=== PATIENT | female | born 1995 | race Caucasian/White ===

== ENCOUNTER 2022-05-17 14:41 | Emergency (ER) | payer OTHER ==
[~2022-05-17] VITALS: Ht 152.4 cm; Wt 56.8 kg
[~2022-05-17 14:41] MED LIST: NOCURR
[2022-05-17] MEDS ORDERED: KETOROLAC TROMETHAMINE 30 MG/ML VIAL IM ONE (16:00)
[2022-05-17] MEDS ORDERED: IBUP-1492 PO (16:23)
[2022-05-17 17:06] VITALS: BP 104/65
== END 2022-05-17 16:59 | disposition home or self-care (01) ==
LOC: EMS 14:47
DX: H72.91 Unspecified perforation of tympanic membrane, right ear (principal); F15.90 Other stimulant use, unspecified, uncomplicated
CPT/HCPCS: 99283; 96372; J1885

== ENCOUNTER 2022-07-15 11:52 | Emergency (ER) | payer OTHER ==
[~2022-07-15] VITALS: Ht 149.9 cm; Wt 54.5 kg
[~2022-07-15 11:52] MED LIST changes: +IBUP-1492 PO
[2022-07-15] MEDS ORDERED: MethylPREDNISolone SOD SUCC 125 MG/2 ML VIAL IVP ONE (12:15)
[2022-07-15 12:25] LABS: BASOPHILS % (AUTO) 0.8 % (0.0-2.0); EOSINOPHILS % (AUTO) 0.9 % (1.0-6.0); HEMATOCRIT 41.3 % (36-46); HEMOGLOBIN 13.4 g/dL (12.0-16.0); LYMPHOCYTES # (AUTO) 2.6 K/uL (1.0-4.8); LYMPHOCYTES % (AUTO) 53.4 % (22.0-44.0); MEAN CORPUSCULAR HEMOGLOBIN 30.3 pg (26.0-34.0); MEAN CORPUSCULAR HGB CONC 32.5 G/dL (31.0-37.0); MEAN CORPUSCULAR VOLUME 93 fL (80-100); MONOCYTES # (AUTO) 0.4 K/uL (0.1-1.0); NEUTROPHILS # (AUTO) 1.8 K/uL (1.8-7.7); NEUTROPHILS % (AUTO) 35.9 % (40.0-70.0); PLATELET COUNT (AUTO) 271 K/uL (150-450); RED BLOOD CELL COUNT(AUTO) 4.43 MIL/uL (4.00-5.20)
[2022-07-15 12:38] LABS: ANION GAP 7 mmol/L (8-16); CALCIUM, TOTAL 8.5 mg/dL (8.8-10.5); CARBON DIOXIDE 28 mmol/L (22-29); CHLORIDE 105 mmol/L (98-107); CREATININE 0.55 mg/dL (0.60-1.30); GLOMERULAR FILTR. RATE CALC > 60 mL/min (>60); GLUCOSE,RANDOM 90 mg/dL (70-110); POTASSIUM 4.1 mmol/L (3.5-5.1); SODIUM SERUM 140 mmol/L (136-145)
[2022-07-15 12:44] LABS: ALANINE AMINOTRANSFERASE 11 U/L (12-78); ALBUMIN 3.8 g/dL (3.4-5.0); ALKALINE PHOSPHATASE 80 U/L (46-116); ASPARTATE AMINOTRANSFERASE 18 U/L (15-37); BILIRUBIN,TOTAL 0.4 mg/dL (0.1-1.0); TOTAL PROTEIN, SERUM 7.6 g/dL (6.4-8.2)
[2022-07-15] MEDS ORDERED: PRED-554 PO ×2 (13:57→14:15)
[2022-07-15 14:00] VITALS: BP 129/76
== END 2022-07-15 14:31 | disposition home or self-care (01) ==
LOC: EMS 11:54
DX: J45.909 Unspecified asthma, uncomplicated (principal); F15.90 Other stimulant use, unspecified, uncomplicated
CPT/HCPCS: 99285; 96374; 71045; 80053; 85025; 85379; 36415; 93005; J2930

== ENCOUNTER 2023-09-01 14:38 | Emergency (ER) | payer OTHER ==
[~2023-09-01] VITALS: Ht 152.4 cm; Wt 54.1 kg
[~2023-09-01 14:38] MED LIST changes: +ALBU90AE IH; -IBUP-1492 PO; -NOCURR
[2023-09-01 14:54] VITALS: TEMP 98.7
[2023-09-01 16:24] LABS: COVID AG,FIA SOURCE NASAL SWAB
[2023-09-01 16:52] LABS: INFLUENZA TYPE A NEGATIVE FOR TYPE A (NEGATIVE); INFLUENZA TYPE B NEGATIVE FOR TYPE B (NEGATIVE)
[2023-09-01 16:59] LABS: APPEARANCE,URINE CLEAR (CLEAR); BILIRUBIN,URINE NEGATIVE (NEGATIVE); COLOR,URINE YELLOW (YELLOW); GLUCOSE, URINE (UA) NEGATIVE (NEGATIVE); KETONES,URINE NEGATIVE (NEGATIVE); LEUKOCYTE ESTERASE ,URINE TRACE (NEGATIVE); NITRATE,URINE NEGATIVE (NEGATIVE); OCCULT BLOOD,URINE NEGATIVE (NEGATIVE); PH,URINE 7.5 (5.0-8.0); PROTEIN,URINE TRACE mg/dL (NEGATIVE); SPECIFIC GRAVITIY, URINE 1.027 (1.003-1.030); UROBILINOGEN,URINE <=1.0 mg/dL (<=1.0)
[2023-09-01] MEDS ORDERED: IBUPROFEN 600 MG TABLET ONE (16:59)
[2023-09-01 17:00] LABS: SARS-COV2 (COVID) ANTIGEN,FIA Positive (Negative)
[2023-09-01 17:07] LABS: BACTERIA,URINE None Seen /HPF (None Seen); RBC,URINE None Seen /HPF (0-2); SQUAMOUS EPITHELIAL CELL,UR Few /LPF (None Seen); WBC,URINE 0-2 /HPF (0-5)
[2023-09-01 17:20] VITALS: BP 108/63; PULSE 93; RESP 18
[2023-09-01] MEDS: ACETAMINOPHEN 500 MG TABLET PO ONE (17:20)
[2023-09-01] MEDS: IBUPROFEN 600 MG TABLET PO ONE (17:20)
[2023-09-01] MEDS ORDERED: NIRM1TAB10 PO (17:27)
== END 2023-09-01 19:05 | disposition home or self-care (01) ==
LOC: EMS 14:38
DX: U07.1 COVID-19 (principal); M79.10 Myalgia, unspecified site; J45.909 Unspecified asthma, uncomplicated; F12.90 Cannabis use, unspecified, uncomplicated; F15.10 Other stimulant abuse, uncomplicated
CPT/HCPCS: 81001; 87804; 99283

== ENCOUNTER 2024-08-31 08:56 | Emergency (ER) | payer OTHER ==
[~2024-08-31] VITALS: Ht 152.4 cm; Wt 54.3 kg
[~2024-08-31 08:56] MED LIST changes: +NIRM1TAB10 PO
[2024-08-31 09:00] VITALS: TEMP 97.3
[2024-08-31] MEDS ORDERED: SODIUM CHLORIDE 0.9% 100 ML ONE (09:26)
[2024-08-31] MEDS ORDERED: IOHEXOL 350 MG/ML 100 ML VIAL ONE (09:26)
[2024-08-31 09:36] LABS: PLATELET COUNT (AUTO) 305 K/uL (150-450); RED BLOOD CELL COUNT(AUTO) 4.23 MIL/uL (4.00-5.20); RED CELL DISTRIBUTION WIDTH 13.5 % (11.5-14.5); WHITE BLOOD COUNT (AUTO) 7.1 K/uL (4.5-11.0)
[2024-08-31 09:42] VITALS: BP 118/75; PULSE 102; RESP 18; O2SAT 100
[2024-08-31 09:43] LABS: CALCIUM, TOTAL 8.2 mg/dL (8.8-10.5); CREATININE 0.56 mg/dL (0.60-1.30); GLOMERULAR FILTR. RATE CALC > 60 mL/min (>60); GLUCOSE,RANDOM 86 mg/dL (70-110); SODIUM SERUM 142 mmol/L (136-145); UREA NITROGEN, BLOOD 10 mg/dL (7-18)
[2024-08-31 09:48] LABS: ASPARTATE AMINOTRANSFERASE 17 U/L (15-37); TOTAL PROTEIN, SERUM 7.2 g/dL (6.4-8.2)
[2024-08-31] MEDS: FLUORESCEIN SODIUM 1 MG STRIP OU ONE (09:48)
[2024-08-31] MEDS: PROPARACAINE HCL 0.5% 15 ML OPHTHALMIC SOLUTION OU ONE (09:49)
[2024-08-31 09:51] LABS: ALCOHOL, BLOOD (SERUM) < 3 mg/dL (0-10)
[2024-08-31 09:52] LABS: TROPONIN I-HIGH SENSITIVITY Less Than 4 ng/L (<51)
[2024-08-31 09:56] LABS: GLUCOMETER DEV NAME(LOC) ERT.7; GLUCOSE,POINT OF CARE 78 MG/DL (70-110)
[2024-08-31 10:54] LABS: APPEARANCE,URINE CLEAR (CLEAR); GLUCOSE, URINE (UA) NEGATIVE (NEGATIVE); LEUKOCYTE ESTERASE ,URINE NEGATIVE (NEGATIVE); NITRATE,URINE POSITIVE (NEGATIVE); OCCULT BLOOD,URINE NEGATIVE (NEGATIVE); PH,URINE DRUG SCREEN 7.0 (5.0-8.0)
[2024-08-31 10:59] LABS: SPECIFIC GRAVITIY, URINE 1.030 (1.003-1.030)
[2024-08-31 11:03] LABS: SQUAMOUS EPITHELIAL CELL,UR Moderate /LPF (None Seen)
[2024-08-31 11:09] LABS: ALCOHOL, URINE DRUG SCREEN NEGATIVE (NEGATIVE); AMPHET/METH SCREEN,URINE POSITIVE (NEGATIVE); BARBITURATE SCREEN, URINE NEGATIVE (NEGATIVE); CANNABINOID SCREEN,URINE NEGATIVE (NEGATIVE); COCAINE SCREEN,URINE NEGATIVE (NEGATIVE); METHADONE SCREEN, URINE NEGATIVE (NEGATIVE)
[2024-08-31] MEDS: CefTRIAXone 1 GM/DEXTROSE 50 ML IV ONE (11:52)
== END 2024-08-31 13:43 | disposition left against medical advice (07) ==
LOC: EMS 08:56 → UNDOADMIN 11:28 → EDH 11:28 → EMS 13:43 → UNDODISIN 13:45
DX: H53.8 Other visual disturbances (principal); F15.90 Other stimulant use, unspecified, uncomplicated; J45.909 Unspecified asthma, uncomplicated; Z79.899 Other long term (current) drug therapy
CPT/HCPCS: 99285; 70496; 70551; 96365; 71045; 80053; 81001; 82962; 83735; 84484; 84703; 85025; 85610; 85730; 87077; 87086; 87186; 86850; 86900; 86901; 36415; 70498; 93005; 80307; 70450; G0480; Q9967; J0696; J7050; 82948; G0378